=== PATIENT | female | born 1955 | race Caucasian/White ===

== ENCOUNTER → 2016-10-08 | Outpatient (CLI) | payer OTHER ==
--- NOTE | 2016-10-09 00:07 | MA ---
Digital Bilateral Mammograms with Tomosynthesis History: Routine screening. 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 Technique: Standard digital cephalocaudal and tomosynthesis oblique views, with computer-aided detec tion (iCAD). Findings: Comparisons: 2015, 2014, 2013, 2008. Breast density B. 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 There are no masses and no suspicious calcifications. Impression: Benign finding. BI-RADS category 2. Recommendation: Bilateral screening mammograms in one year. Negative mammography should not preclude additional workup of any clinically suspicious area. [facility] will send a letter of results to the patient. The patient's information is entered into a reminder system with a target due date for her next mammogram.
== END ==
LOC: FIMAGING 16:08
DX: Z12.31 Encounter for screening mammogram for malignant neoplasm of breast (principal); Z85.3 Personal history of malignant neoplasm of breast
CPT/HCPCS: G0202

== ENCOUNTER → 2016-12-27 | Outpatient (CLI) | payer OTHER | LOC: CIMAGING 16:27 | PROVIDERS: ATTEND Family Medicine | DX: R93.8 Abnormal findings on diagnostic imaging of other specified body structures (principal); R05 Cough; R06.00 Dyspnea, unspecified | CPT/HCPCS: 71020-PO ==

== ENCOUNTER → 2017-04-17 | Outpatient (CLI) | payer OTHER | LOC: FIMAGING 15:39 | PROVIDERS: ATTEND Family Medicine | DX: J98.4 Other disorders of lung (principal); R06.00 Dyspnea, unspecified ==

== ENCOUNTER → 2017-10-09 | Outpatient (CLI) | payer OTHER | LOC: FIMAGING 16:02 | PROVIDERS: ATTEND Internal Medicine Hematology & Oncology | DX: Z12.31 Encounter for screening mammogram for malignant neoplasm of breast (principal); Z86.000 Personal history of in-situ neoplasm of breast ==

== ENCOUNTER → 2019-01-12 | Outpatient (CLI) | payer OTHER | LOC: FIMAGING 14:09 | PROVIDERS: ATTEND Family Medicine | DX: Z12.31 Encounter for screening mammogram for malignant neoplasm of breast (principal); Z85.3 Personal history of malignant neoplasm of breast ==

== ENCOUNTER → 2019-03-23 | Outpatient (CLI) | payer OTHER | LOC: FIMAGING 09:40 ==